=== PATIENT | female | born 1955 | race Caucasian/White ===

== ENCOUNTER 2023-03-16 13:05 | Outpatient (CLI) | payer OTHER ==
[2023-03-16 13:22] LABS: BASOPHILS # (AUTO) 0.1 10^3/uL (0.0-0.1); BASOPHILS % (AUTO) 0.8 %; EOSINOPHILS # (AUTO) 0.3 10^3/uL (0.0-0.7); EOSINOPHILS % (AUTO) 3.3 %; HCT - HEMATOCRIT 41.7 % (37.0-47.0); HGB - HEMOGLOBIN 13.5 g/dL (12.0-16.0); LYMPHOCYTES # (AUTO) 3.1 10^3/uL (1.5-3.5); LYMPHOCYTES % (AUTO) 32.5 %; MEAN CORPUSCULAR HEMOGLOBIN 28.8 pg (27.0-31.0); MEAN CORPUSCULAR HGB CONC 32.4 g/dL (32.0-36.0); MEAN CORPUSCULAR VOLUME 88.9 fL (81.0-99.0); MEAN PLATELET VOLUME 10.1 fL (7.9-10.8); MONOCYTES # (AUTO) 0.5 10^3/uL (0.0-1.0); MONOCYTES % (AUTO) 5.6 %; NEUTROPHILS # (AUTO) 5.4 10^3/uL (1.5-6.6); NEUTROPHILS % (AUTO) 57.6 %; PLT - PLATELET COUNT 309 10^3/uL (130-450); RED BLOOD COUNT 4.69 10^6/uL (4.20-5.40); RED CELL DISTRIBUTION WIDTH 12.4 % (12.0-15.0); WHITE BLOOD COUNT 9.5 x10^3/uL (4.8-10.8)
[2023-03-16 13:50] LABS: THYROID STIMULATING HORMONE 1.57 uIU/mL (0.34-5.60)
[2023-03-16 17:07] LABS: ALBUMIN 4.5 g/dL (3.2-5.5); ALBUMIN/GLOBULIN RATIO 1.6 (1.0-2.2); ALKALINE PHOSPHATASE 103 IU/L (42-121); ALT ALANINE AMINOTRANSFERASE 20 IU/L (10-60); AST ASPARTATE AMINOTRANSFERASE 16 IU/L (10-42); BILIRUBIN,TOTAL 0.5 mg/dL (0.2-1.0); BUN - BLOOD UREA NITROGEN 17 mg/dL (6-20); CALCIUM 9.7 mg/dL (8.5-10.3); CARBON DIOXIDE - CO2 29 mmol/L (21-32); CHLORIDE 100 mmol/L (101-111); CHOLESTEROL 322 mg/dL; CREATININE 0.7 mg/dL (0.6-1.3); GFR - MDRD 84 (>89); GLUCOSE 302 mg/dL (74-104); HDL CHOLESTEROL 65 mg/dL; LDL CHOLESTEROL,CALCULATED 215 mg/dL; LDL/HDL RATIO 3.3 (<4.4); POTASSIUM 3.9 mmol/L (3.5-4.5); SODIUM 136 mmol/L (135-145); TOTAL PROTEIN 7.4 g/dL (6.4-8.9); TRIGLYCERIDES 211 mg/dL (48-352); VLDL CHOLESTEROL 42 mg/dL
[2023-03-17 20:37] LABS: ESTIMATED AVERAGE GLUCOSE 272 mg/dL (70-100); HEMOGLOBIN A1c% 11.1 % (4.27-6.07)
== END 2023-03-16 13:06 | disposition home or self-care (01) ==
LOC: LAB 13:05
PROVIDERS: ATTEND Physician Assistant
DX: I10 Essential (primary) hypertension (principal); E78.5 Hyperlipidemia, unspecified; R73.01 Impaired fasting glucose
CPT/HCPCS: 36415; 80053; 80061; 83036; 83721; 84443; 85025

== ENCOUNTER 2023-05-02 09:22 | Outpatient (CLI) | payer OTHER ==
--- NOTE | 2023-05-02 09:25 | CARDIAC PROCEDURE NOTE ---
Stress Test Report Service Date: 05/02/23 Service Time: 09:30 Ordering Provider: Annmarie Pena PA Indication for Test: Assess chest tightness. Significant Medical History: Ceci is referred for a treadmill stress echocardiogram today, to evaluate intermittent chest tightness episodes occurring in the setting of a higher risk CAD profile, as outlined below. She has worked as an RN for many years, most recently at the [employer] in [place], which she describes as a very active and high stress environment. The vast majority of her symptom episodes have occurred in the workplace, consisting of central substernal chest tightness that is nonradiating and not associated with nausea, diaphoresis or shortness of breath. She also describes one episode when she was attempting to lift up her kayak to put it on her car and felt a wave of palpitations and clamminess, but without associated chest discomfort. She is aware of palpitations at other times, but they are not intrusive and not associated with dizziness/lightheadedness. She is quite active; in addition to kayaking, she exercises at least twice a week for a couple of hours, hiking up hills without a decrement in her tolerance of these activities. In March she was seen to re- establish medical care, after an interval away since relocating from [place] and was re-initiated on therapies for hypertension and hyperlipidemia (apparently non-fasting lipids were Total Cholesterol 322, LDL-c 215, HDL-c 65, TG 211) as well as initiated on treatment with metformin (with findings of random glucose 302 and HbA1c 11%). She reports feeling an improved energy level since re-initiating these medications, with BPs now running in the 130's/70's when checked under resting conditions at home. Cardiac Risk Factors: Positive for history of hypertension and hyperlipidemia (treated off-and-on since 2003), diabetes (diagnosed in 2022 and initiated on metformin treatment) and family history of coronary heart disease (including her mother in her 50's and probably both paternal grandparents); no significant tobacco smoking history (smoked just a few years prior to age 22 and then quit). Type of Stress Test: ETT with Echocardiography Procedure: -Exercise Treadmill Test- After signing informed consent, the patient performed treadmill exercise using a Evin protocol. The patient underwent echo imaging at rest and then exercised for 5 minutes 40 seconds and achieved a peak heart rate of 156 (101 percent predicted maximum heart rate for age), and an estimated workload of 7.1 METS. The test was terminated due to fatigue/shortness of breath. Resting heart rate: 76 Peak heart rate: 156 Normal response to exercise. Resting BP: 169/80 Peak BP: 206/74 Hypertensive at rest with normal response of systolic and diastolic BPs to exercise. Rhythm during exercise: Sinus rhythm throughout, with occasional premature atrial complexes, that increased in frequency near peak exercise and were present in runs up to 3 beats in early Recovery (seen in EKGs at 2:39 and 3:00 of Recovery). Symptoms: She denied experiencing any chest discomfort nor awareness of irregular heart rhythm. EKG at rest showed normal sinus rhythm with probable left atrial abnormality; no evidence of Q waves to indicate prior infarct, with normal ST-T pattern. EKG at peak stress showed no ischemia by EKG criteria. In Recovery heart rate decreased rapidly/normally towards baseline, with more delayed lowering of blood pressure (BP was 173/80 at 9:00). Echo imaging performed at rest and with stress will be reported separately. IFarhan MD, was present throughout this treadmill stress study and supervised it in its entirety. Summary: 1) Exercise tolerance slightly below average for age as evidenced by RICH of 8%. 2) Normal resting EKG. 3) Adequate level of exercise was achieved on this treadmill stress test. 4) Elevated resting BP with normal response to exercise. 5) No ischemic changes by EKG criteria were seen at peak stress. 6) Echo image interpretation reveals normal left ventricular size, wall thickness and systolic function, with appropriate hyperdynamic augmentation of all segments with exercise, indicating no evidence of prior infarct or inducible ischemia. On screening study there was no significant valvular abnormality detected, but there was elevation of the tricuspid regurgitation velocity (3.0 m/s) through a structurally normal tricuspid valve with a normal-sized but non- collapsing IVC, yielding an elevation of estimated right ventricular/pulmonary artery systolic pressure (to 43-44 mmHg). See separate report for more details. Conclusions and Recommendations: 1) No symptom, EKG or echocardiographic evidence of prior infarct or inducible ischemia was obtained at a very adequate exertional level. 2) The combination of otherwise unexplained mild elevation in RV/PA systolic pressure detected on screening echo study, along with frequent PACs and short runs at peak exercise/early Recovery raises concern for the possibility of an atrial septal abnormality, such as a small ASD or PFO. I am recommending that she return in the near future for a full diagnostic echocardiogram with saline bubble study, to assess her atrial septum. If an abnormality is documented it would be very reasonable for her to have a formal Cardiology evaluation. We discussed the complexity of these issues being such that an evaluation at the [facility] may be appropriate. She could be referred to the [facility] at [facility] if these findings are substantiated.
== END 2023-05-02 09:23 | disposition home or self-care (01) ==
LOC: DI 09:22
PROVIDERS: ATTEND Physician Assistant
DX: R07.89 Other chest pain (principal); R00.2 Palpitations; I10 Essential (primary) hypertension; E78.5 Hyperlipidemia, unspecified; E11.9 Type 2 diabetes mellitus without complications; Z79.84 Long term (current) use of oral hypoglycemic drugs; Z82.49 Family history of ischemic heart disease and other diseases of the circulatory system; Z87.891 Personal history of nicotine dependence
CPT/HCPCS: 93350

== ENCOUNTER 2023-06-16 11:16 | Outpatient (CLI) | payer OTHER ==
[2023-06-16 11:53] LABS: CREATININE,URINE 42.7 mg/dL
[2023-06-16 11:54] LABS: BUN - BLOOD UREA NITROGEN 17 mg/dL (6-20); CALCIUM 9.7 mg/dL (8.5-10.3); CARBON DIOXIDE - CO2 31 mmol/L (21-32); CHLORIDE 104 mmol/L (101-111); CHOL/HDL RATIO 2.8 (<4.4); CHOLESTEROL 152 mg/dL; CREATININE 0.8 mg/dL (0.6-1.3); GFR - MDRD 72 (>89); GLUCOSE 162 mg/dL (74-104); HDL CHOLESTEROL 54 mg/dL; LDL CHOLESTEROL,CALCULATED 82 mg/dL; LDL/HDL RATIO 1.5 (<4.4); SODIUM 139 mmol/L (135-145); TRIGLYCERIDES 78 mg/dL (48-352); VLDL CHOLESTEROL 16 mg/dL
[2023-06-16 11:55] LABS: MICROALBUMIN,URINE < 0.7 mg/dL
[2023-06-16 12:29] LABS: ESTIMATED AVERAGE GLUCOSE 206 mg/dL (70-100); HEMOGLOBIN A1c% 8.8 % (4.27-6.07)
== END 2023-06-16 11:17 | disposition home or self-care (01) ==
LOC: LAB 11:16
PROVIDERS: ATTEND Physician Assistant
DX: E11.65 Type 2 diabetes mellitus with hyperglycemia (principal); E78.5 Hyperlipidemia, unspecified
CPT/HCPCS: 36415; 80048; 80061; 82043; 82570; 83036; 83721

== ENCOUNTER 2023-08-11 08:00 | Outpatient (CLI) | payer OTHER | END 2023-08-11 08:01 | disposition home or self-care (01) | LOC: DI 08:00 | PROVIDERS: ATTEND Physician Assistant | DX: R93.1 Abnormal findings on diagnostic imaging of heart and coronary circulation (principal); I34.0 Nonrheumatic mitral (valve) insufficiency; I51.7 Cardiomegaly | CPT/HCPCS: 93307 ==

== ENCOUNTER 2023-09-07 14:14 | Outpatient (CLI) | payer OTHER ==
[2023-09-07 14:41] LABS: CALCIUM 10.4 mg/dL (8.5-10.3); CREATININE 0.9 mg/dL (0.6-1.3); POTASSIUM 4.2 mmol/L (3.5-4.5)
[2023-09-07 21:11] LABS: ESTIMATED AVERAGE GLUCOSE 174 mg/dL (70-100); HEMOGLOBIN A1c% 7.7 % (4.27-6.07)
== END 2023-09-07 14:15 | disposition home or self-care (01) ==
LOC: LAB 14:14
PROVIDERS: ATTEND Physician Assistant
DX: E11.65 Type 2 diabetes mellitus with hyperglycemia (principal)
CPT/HCPCS: 36415; 80048; 83036

== ENCOUNTER 2023-09-24 19:49 | Emergency (ER) | payer OTHER ==
[2023-09-24 20:10] VITALS: BP 182/78; O2SAT 97
--- NOTE | 2023-09-24 20:35 | ED Physician Documentation ---
PD HPI LOWER EXT INJURY - Stated complaint Stated Complaint: FALL/KNEE INJURY - Chief complaint Chief Complaint: Trauma Ext - History obtained from History obtained from: Patient - Additional information Additional information: The patient comes to the emergency department chief complaint of right inner and posterior knee pain after tripping and falling about 5 hours ago. She states she was walking on the sidewalk when she caught her toe on And irregular spot on the sidewalk and fell. She states she did not strike her knee directly but was trying to pivot and avoid falling down hard, and thinks she may have twisted her knee in the process. She does not recall feeling a pop or snap at that time. The patient states she was able to get up and really did not have any pain in the knee. She went back to clinic and finished her 12-hour shift and over the final couple hours of her shift, began to feel increasing stiffness and a dull ache in her popliteal area. She states that she has been able to walk since but that it just feels stiff. She denies any prior injury to that knee. She was not injured in any other way. No numbness or tingling in her distal right lower extremity. The knee does not feel unstable. No other complaints at this time. PD PAST MEDICAL HISTORY - Past Medical History Past Medical History: Yes Cardiovascular: Hypertension, High cholesterol, Atrial fibrillation, Arrhythmia Endocrine/Autoimmune: Type 2 diabetes - Past Surgical History Past Surgical History: Yes HEENT: Tonsil/Adenoidectomy - Present Medications Home Medications: Ambulatory Orders Medication Instructions Recorded Confirmed Atorvastatin [Lipitor] 20 mg PO QPM 07/15/23 09/24/23 metFORMIN [Glucophage] 500 mg PO BIDWM 07/15/23 09/24/23 Aspirin EC [Ecotrin] 81 mg PO DAILY 08/29/23 09/24/23 diltiaZEM CD [Cardizem Cd] 240 mg PO DAILY 08/29/23 09/24/23 Potassium Chloride 1 tab PO DAILY 09/24/23 09/24/23 - Allergies Allergies/Adverse Reactions: Allergies Allergy/AdvReac Type Severity Reaction Status Date / Time lisinopril Allergy Respiratory Verified 09/24/23 20:03 Sulfa (Sulfonamide Allergy Anaphylaxis Verified 09/24/23 20:03 Antibiotics) - Social History Does the pt smoke?: No Smoking Status: Never smoker Does the pt drink ETOH?: Yes ETOH Use: Beer Does the pt have substance abuse?: No - Immunizations Immunizations are current?: No - POLST Patient has POLST: No PD ED PE NORMAL - Vitals Vital signs reviewed: Yes - General General: Alert and oriented X 3, No acute distress, Well developed/nourished - HEENT HEENT: Atraumatic, PERRL, EOMI, Moist mucous membranes - Neck Neck: Supple, no meningeal sign - Cardiac Cardiac: Strong equal pulses - Respiratory Respiratory: No respiratory distress - Derm Derm: Normal color, Warm and dry, No rash - Extremities Extremities: No deformity, Normal ROM s pain, No edema, No calf tenderness / cord, Other (Mild tenderness palpation in the popliteal area right knee. No tenderness elsewhere. No instability to AP or mediolateral stress. Normal gait. No patellar tenderness.) - Neuro Neuro: No motor deficit, No sensory deficit, Other (Grossly intact otherwise) - Psych Psych: Normal mood, Normal affect Results - Vitals Vitals: Vital Signs - 24 hr 09/24/23 19:50 Temperature 36.5 C Heart Rate 85 Respiratory 14 Rate Blood Pressure 182/78 H O2 Saturation 97 Oxygen O2 Source Room air - Rads (name of study) Right knee x-ray series Relevant Findings:: EMP independent interpretation of test (Some degenerative changes, otherwise negative.) PD Medical Decision Making - ED course Complexity details: reviewed results, re-evaluated patient, considered differential, d/w patient ED course: The patient was given a dose of ibuprofen and worked up with x-ray of the knee. Departure - Departure Disposition: 01 Home, Self Care Clinical Impression: Ground-level fall Knee sprain Qualifiers: Encounter type: initial encounter Involved ligament of knee: unspecified ligament Laterality: right Qualified Code(s): S83.91XA - Sprain of unspecified site of right knee, initial encounter Condition: Stable Instructions: ED Sprain Knee Comments: Your knee is stable and based on the fact that you were able to stand and walk without difficulty and really without much pain for the first couple of hours after falling, it is unlikely that you have sustained a major injury. Your x- ray series looks good, but does show some arthritis around the knee joint and this may partially be contributing to your discomfort after this injury. However, it is also possible that you sustained a minor sprain to one of your cruciate ligaments or that you roughed up your meniscus a little. Either 1 of these could cause accumulation of some inflammatory fluid within the knee joint and this could cause a sense of achiness and stiffness/fullness. As we discussed, in general, these injuries heal well on their own, that this is a gradual process that occurs over the course of 4 to 6 weeks. You should notice steady improvement after the first week, however, and if you get to about 3 weeks out and do not really notice any significant improvement, you will need to talk to your doctor about possibly getting MRI done to assess the injury and level of healing. You may take ibuprofen and Tylenol, in the meantime, to help with discomfort. You should rest the knee whenever possible and prop your foot up if you are either sitting or laying down. Ice packs can be helpful as well. Forms: PCP List
--- NOTE | 2023-09-24 20:46 | XRAY Report ---
PROCEDURE: Knee 4+V RT INDICATIONS: fall/R knee pain TECHNIQUE: 5 views of the knee(s) were acquired. COMPARISON: None. FINDINGS: Bones: There is minimal cortical irregularity likely representing summation artifact involving the h ead of the right fibula laterally. This is seen only on one view. No other fracture identified. Moder ate tricompartmental degenerative changes of the right knee. Soft tissues: No substantial knee joint effusion. No suspicious soft tissue calcifications or masses . IMPRESSION: Minimal cortical regularity involving the lateral aspect of the fibular head seen only on one view. T his is suspected to be summation artifact. However, recommend correlating with physical examination t o exclude point tenderness in this region. Otherwise, moderate tricompartmental degenerative changes of the right knee without acute fracture or dislocation. If there is persistent clinical concern for occult fracture, recommend follow-up imagin g in 10-14 days. Reviewed by: Paulino Crenshaw MD on 09/24/2023 8:45 PM PDT Approved by: Paulino Crensahw MD on 09/24/2023 8:45 PM PDT Station ID: [id number]
[2023-09-24] MEDS: IBUPROFEN 600 MG TABLET PO STA (20:59)
== END 2023-09-24 21:00 | disposition home or self-care (01) ==
LOC: ED 19:49
DX: S83.91XA Sprain of unspecified site of right knee, initial encounter (principal); W01.0XXA Fall on same level from slipping, tripping and stumbling without subsequent striking against object, initial encounter; Y92.480 Sidewalk as the place of occurrence of the external cause; I48.91 Unspecified atrial fibrillation; I10 Essential (primary) hypertension; E78.00 Pure hypercholesterolemia, unspecified; E11.9 Type 2 diabetes mellitus without complications; Z79.84 Long term (current) use of oral hypoglycemic drugs; Z79.899 Other long term (current) drug therapy
CPT/HCPCS: 73564; 99283; 99284; A9270; 1040M

== ENCOUNTER 2024-02-01 08:18 | Outpatient (CLI) | payer OTHER ==
[2024-02-01 08:37] LABS: BASOPHILS # (AUTO) 0.1 10^3/uL (0.0-0.1); BASOPHILS % (AUTO) 1.4 %; EOSINOPHILS # (AUTO) 0.5 10^3/uL (0.0-0.7); EOSINOPHILS % (AUTO) 5.5 %; HCT - HEMATOCRIT 37.4 % (37.0-47.0); LYMPHOCYTES # (AUTO) 2.8 10^3/uL (1.5-3.5); MEAN CORPUSCULAR HEMOGLOBIN 28.8 pg (27.0-31.0); MEAN CORPUSCULAR HGB CONC 32.1 g/dL (32.0-36.0); MEAN CORPUSCULAR VOLUME 89.7 fL (81.0-99.0); MEAN PLATELET VOLUME 10.1 fL (7.9-10.8); MONOCYTES # (AUTO) 0.7 10^3/uL (0.0-1.0); MONOCYTES % (AUTO) 7.4 %; NEUTROPHILS # (AUTO) 4.7 10^3/uL (1.5-6.6); NEUTROPHILS % (AUTO) 53.5 %; PLT - PLATELET COUNT 317 10^3/uL (130-450); RED BLOOD COUNT 4.17 10^6/uL (4.20-5.40); WHITE BLOOD COUNT 8.8 x10^3/uL (4.8-10.8)
[2024-02-01 08:59] LABS: ALBUMIN 4.4 g/dL (3.2-5.5); ALBUMIN/GLOBULIN RATIO 1.6 (1.0-2.2); ALKALINE PHOSPHATASE 63 IU/L (42-121); ALT ALANINE AMINOTRANSFERASE 18 IU/L (10-60); AST ASPARTATE AMINOTRANSFERASE 16 IU/L (10-42); BILIRUBIN,TOTAL 0.5 mg/dL (0.2-1.0); BUN - BLOOD UREA NITROGEN 13 mg/dL (6-20); CALCIUM 9.8 mg/dL (8.5-10.3); CARBON DIOXIDE - CO2 31 mmol/L (21-32); CHLORIDE 100 mmol/L (101-111); CHOL/HDL RATIO 2.1 (<4.4); CHOLESTEROL 131 mg/dL; CREATININE 0.7 mg/dL (0.6-1.3); GFR - MDRD 83 (>89); GLUCOSE 134 mg/dL (74-104); HDL CHOLESTEROL 61 mg/dL; LDL CHOLESTEROL,CALCULATED 50 mg/dL; LDL/HDL RATIO 0.8 (<4.4); POTASSIUM 4.4 mmol/L (3.5-4.5); SODIUM 135 mmol/L (135-145); TOTAL PROTEIN 7.2 g/dL (6.4-8.9); TRIGLYCERIDES 102 mg/dL; VLDL CHOLESTEROL 20 mg/dL
[2024-02-01 09:01] LABS: MICROALBUM/CREATININE RATIO,UR 18.4 ug/mg (<30.0); MICROALBUMIN,URINE 0.9 mg/dL
[2024-02-01 09:07] LABS: THYROID STIMULATING HORMONE 4.85 uIU/mL (0.34-5.60)
[2024-02-01 10:10] LABS: ESTIMATED AVERAGE GLUCOSE 148 mg/dL (70-100); HEMOGLOBIN A1c% 6.8 % (4.27-6.07)
== END 2024-02-01 08:19 | disposition home or self-care (01) ==
LOC: LAB 08:18
PROVIDERS: ATTEND Physician Assistant
DX: E11.65 Type 2 diabetes mellitus with hyperglycemia (principal); E78.5 Hyperlipidemia, unspecified; I10 Essential (primary) hypertension
CPT/HCPCS: 36415; 80053; 80061; 82043; 82570; 83036; 83721; 84443; 85025

== ENCOUNTER 2024-02-20 08:00 | Outpatient (CLI) | payer OTHER, MEDICARE ==
[2024-02-20 18:07] LABS: BILIRUBIN,URINE NEGATIVE (NEGATIVE); GLUCOSE, URINE (UA) NEGATIVE (NEGATIVE); KETONES,URINE (UA) NEGATIVE (NEGATIVE); LEUKOCYTE ESTERASE, URINE MODERATE (NEGATIVE); NITRITE,URINE POSITIVE (NEGATIVE); OCCULT BLOOD,URINE NEGATIVE (NEGATIVE); PH,URINE 6.5 PH (5.0-7.5); PROTEIN,URINE NEGATIVE (NEGATIVE); UROBILINOGEN,URINE 0.2 (NORMAL) E.U./dL (NORMAL)
[2024-02-20 18:10] LABS: CLARITY,URINE HAZY (CLEAR)
[2024-02-20 18:19] LABS: BACTERIA,URINE Many /HPF (None Seen); EPITHELIAL CELLS,UR FEW Transitional /HPF (<= Few); RBC,URINE 0-5 /HPF (0-5); SQUAMOUS EPITHELIAL CELL,UR FEW Squamous (<= Few)
== END 2024-02-20 23:59 | disposition home or self-care (01) ==
LOC: LAB.S 08:00
PROVIDERS: ATTEND Physician Assistant
DX: R30.0 Dysuria (principal)
CPT/HCPCS: 81001; 81003

== ENCOUNTER 2024-02-23 17:21 | Outpatient (CLI) | payer OTHER, MEDICARE ==
[2024-02-23 17:50] LABS: BILIRUBIN,URINE NEGATIVE (NEGATIVE); GLUCOSE, URINE (UA) NEGATIVE (NEGATIVE); KETONES,URINE (UA) NEGATIVE (NEGATIVE); LEUKOCYTE ESTERASE, URINE SMALL (NEGATIVE); NITRITE,URINE POSITIVE (NEGATIVE); OCCULT BLOOD,URINE NEGATIVE (NEGATIVE); PROTEIN,URINE NEGATIVE (NEGATIVE); UROBILINOGEN,URINE 0.2 (NORMAL) E.U./dL (NORMAL)
[2024-02-23 17:52] LABS: CLARITY,URINE HAZY (CLEAR)
[2024-02-23 18:23] LABS: BACTERIA,URINE Many /HPF (None Seen); RBC,URINE 0-5 /HPF (0-5); SQUAMOUS EPITHELIAL CELL,UR RARE Squamous (<= Few)
== END 2024-02-23 17:22 | disposition home or self-care (01) ==
LOC: LAB 17:21
PROVIDERS: ATTEND Physician Assistant
DX: R30.0 Dysuria (principal)
CPT/HCPCS: 81001; 87077; 87086; 87181